=== PATIENT | female | born 1960 | race Caucasian/White ===

== ENCOUNTER 2016-11-11 13:46 | Emergency (ER) | payer MEDICAID, OTHER ==
[~2016-11-11] VITALS: Ht 165.1 cm; Wt 89.0 kg
[2016-11-11 13:50] VITALS: Ht 165.1 cm; Wt 89.0 kg
[2016-11-11] MEDS ORDERED: ALBU8.5H3 INH (15:48)
[2016-11-11] MEDS ORDERED: AZIT500T3 PO (15:48)
[2016-11-11] MEDS ORDERED: DEXAMETHASONE 10 MG/ML 1 ML INJ IM ONE (16:00)
[2016-11-11 16:40] VITALS: BP 146/80; PULSE 72; RESP 18; TEMP 98.1
--- NOTE | 2016-11-11 17:20 | ERD ---
ER Documentation Chief Complaint Date/Time DATE: 11/11/16 TIME: 17:18 Chief Complaint sore throat x 5 days HPI 56-year-old woman presents with coarse, hoarse voice 5 days. She smokes tobacco daily and has been smoking for years and states she has a history of asthma/COPD. She denies wheezing or shortness of breath, no fevers or chills, no vomiting or diarrhea, no difficulty swallowing. Patient denies calf or leg swelling. ROS All systems reviewed and are negative except as per history of present illness. Medications Home Meds Active Scripts Albuterol Sulfate* (Proair HFA*) 8.5 Gm Hfa.aer.ad, 2 PUFF INH Q6H Y for WHEEZING AND SOB, #1 INHALER Prov:LAVONNE AZUL MD 11/11/16 Azithromycin* (Zithromax*) 500 Mg Tablet, 500 MG PO DAILY for 5 Days, TAB Prov:LAVONNE AZUL MD 11/11/16 PMhx/Soc COPD/asthma, hypertension, tobacco smoker Medical and Surgical Hx: pt denies Medical Hx, pt denies Surgical Hx Hx Alcohol Use: No Hx Substance Use: No Hx Tobacco Use: No Smoking Status: Never smoker FmHx Family History: No diabetes Physical Exam Vitals Vital Signs Date Time Temp Pulse Resp B/P Pulse Ox O2 Delivery O2 Flow Rate FiO2 11/11/16 16:40 98.1 72 18 146/80 99 11/11/16 13:50 98.6 104 18 137/85 98 Physical Exam GENERAL: Well-developed, well-nourished, well-hydrated, in no apparent distress , looks nontoxic in appearance HEENT: Hoarse voice, mild pharyngeal erythema without exudates, moist mucous membranes, pink conjunctiva, no cervical spine tenderness or step-off deformities, no goiter, no jaundice or icterus, extraocular movements intact without pain. No submandibular induration. NEURO: Alert and oriented 3, cranial nerves II through XII intact bilaterally, pupils equal round reactive to light, no focal deficits or facial asymmetry, sensation intact distally Strength 5/5 in upper and lower extremities bilaterally CARDIAC: Regular rate and rhythm, no murmurs rubs or gallops LUNGS: Clear bilaterally no wheezing crackles or stridor ABDOMEN: Soft nontender, no guarding, no rigidity, no rebound, no psoas sign no obturator sign. Normoactive bowel sounds SKIN: Warm and dry to touch, no abrasions, contusions, or hematomas, no lacerations, no ecchymosis, no target lesions, and without ulcers EXTREMITIES: No clubbing cyanosis or edema, calves are bilaterally symmetrical, no Homans sign, no popliteal cord sign. Distal pulses equal and bilateral PSYCH: Normal affect without agitation or irritability Results 24 hrs Current Medications Medications (Trade) Dose Ordered Sig/Mesha Route PRN Reason Start Time Stop Time Status Last Admin Dose Admin Dexamethasone (Decadron) 10 mg ONCE ONCE IM 11/11/16 16:00 11/11/16 16:01 DC 11/11/16 16:08 Procedures/MDM I administered dexamethasone 10 mg intramuscular injection for her symptoms and will be prescribing a 5 day course of azithromycin. Differential diagnoses considered, included but not limited to acute coronary syndrome, pulmonary embolism, aortic dissection, abdominal aortic aneurysm, sepsis, stroke, meningitis, encephalitis, pneumonia, appendicitis, cholecystitis , bowel obstruction, pyelonephritis, nephrolithiasis, cystitis, as well as metabolic, hematologic, and electrolyte abnormalities. As well as abscess, cellulitis, fractures, and dislocations. Patient feels much better at this time, and vital signs are normal, symptoms have improved. I did give strict instructions to return to the ED if symptoms continue or worsen, patient will otherwise follow-up with primary care physician. Patient understood instructions and agreed to plan. Departure Diagnosis: Primary Impression: Laryngitis Condition: Good Patient Instructions: LaryngLAVONNE Botello MD Nov 11, 2016 17:20
== END 2016-11-11 16:41 | disposition home or self-care (01) ==
LOC: FTE 13:46
DX: J04.0 Acute laryngitis (principal); F17.210 Nicotine dependence, cigarettes, uncomplicated; J45.909 Unspecified asthma, uncomplicated; I10 Essential (primary) hypertension
CPT/HCPCS: 96372; J1100

== ENCOUNTER 2019-04-04 06:29 | Emergency (ER) | payer MEDICAID, OTHER ==
[~2019-04-04] VITALS: Ht 162.6 cm; Wt 93.0 kg
[~2019-04-04 06:29] MED LIST: ALBU8.5H8 INH; AZIT500T3 PO; FURO-110 PO
[2019-04-04 06:33] VITALS: Ht 162.6 cm; Wt 93.0 kg
[2019-04-04 09:26] VITALS: BP 116/78; PULSE 82; RESP 14
== END 2019-04-04 09:25 | disposition home or self-care (01) ==
LOC: E/R 06:29
DX: M79.89 Other specified soft tissue disorders (principal); R07.9 Chest pain, unspecified
CPT/HCPCS: 71045; 80053; 83880; 84484; 85025; 93005; Z7502; Z7610